=== PATIENT | female | born 1985 | race Caucasian/White ===

== ENCOUNTER 2019-12-02 20:09 | Emergency (ER) | payer OTHER ==
[~2019-12-02] VITALS: Ht 154.9 cm; Wt 54.4 kg
[2019-12-02] MEDS ORDERED: KEFLEX500 M1 PO (22:10)
[2019-12-02 22:26] VITALS: BP 132/67
== END 2019-12-02 22:26 | disposition home or self-care (01) ==
LOC: M.ERS 20:09
DX: S01.511A Laceration without foreign body of lip, initial encounter (principal); Y08.89XA Assault by other specified means, initial encounter; Y93.89 Activity, other specified; Y92.89 Other specified places as the place of occurrence of the external cause; Y99.8 Other external cause status

== ENCOUNTER 2019-12-13 09:04 | Emergency (ER) | payer OTHER ==
[~2019-12-13] VITALS: Ht 154.9 cm; Wt 54.4 kg
[~2019-12-13 09:04] MED LIST: KEFLEX500 M1 PO
[2019-12-13 09:29] VITALS: BP 133/90
== END 2019-12-13 09:29 | disposition home or self-care (01) ==
LOC: M.ERS 09:04
DX: S01.511D Laceration without foreign body of lip, subsequent encounter (principal); X58.XXXD Exposure to other specified factors, subsequent encounter